=== PATIENT | male | born 1980 | race Caucasian/White ===

== ENCOUNTER 2024-06-22 00:51 | Emergency (ER) | payer OTHER ==
[~2024-06-22] VITALS: Ht 182.9 cm; Wt 88.5 kg
--- NOTE | 2024-06-22 01:11 | ED.PDOC ---
Altered Mental Status HPI Comments 43 year old male came to ER via EMS due o hypoglycemia/ ALOC. Per EMS, patient has history of diabetes type 1 and hypertension. Patients daughter found patient laying unresponsive at the floor. Apparently patient is intoxicated with alcohol with 2-3 empty bottles of vodka beside him. Noted hypoglycemia at 46. Patient was given D10 and it improved to 115. Patient still confused and disoriented at this time. Chief Complaint: Hypoglycemia Time Seen by MD: 01:10 Reviewed Notes: Nurses Notes Allergies: Coded Allergies: Penicillins (Verified Allergy, Unknown, 06/22/24) Information Source: Emergency Med Personnel Mode of Arrival: EMS Severity: Unable to Care for Self, Unresponsive Timing: Hours Duration: Since onset Quality: Decreased Alertness, Change in Behavior, Confusion History of: Diabetes, Hypoglycemia Review of Systems REVIEW OF SYSTEMS: (+) patient altered, intoxicated with alcohol No fever, no chills, or fatigue HEENT: No sore throat, no earache, no congestion, no neck pain. Cardiac: No chest pain. No palpitations. Lungs: No shortness of breath, no cough. GI: No nausea, no vomiting, no diarrhea, no constipation, no abdominal pain : No dysuria, frequency, or urgency. No hematuria. Musculoskeletal: No joint pain , no joint swelling, no extremity edema. Skin: No rash, no itching. Neuro: No headache, no dizziness, no weakness Vital Signs Vital Signs Date Time Temp Pulse Resp B/P (MAP) Pulse Ox O2 Delivery O2 Flow Rate FiO2 06/22/24 01:11 72 06/22/24 00:51 94.9 20 132/100 (111) 97 94.9 Physical Exam General: Patient is lethargic, easily arousable. Skin: Skin in cool, dry and intact. Appropriate color for ethnicity. Nailbeds pink with no cyanosis. HEENT: The head is normocephalic and atraumatic. Conjunctivae are clear without exudates or hemorrhage. Sclera is non-icteric. EOM are intact. No signs of nystagmus. Eyelids are normal in appearance without swelling or lesions. Oral mucosa is pink and moist Neck: The neck is supple with normal range of motion. No JVD. Cardiac: Heart rate and rhythm are normal. No murmurs, gallops, or rubs are auscultated. Respiratory: No signs of respiratory distress. Lung sounds are clear in all lobes bilaterally without rales, ronchi, or wheezes. Abdominal: Abdomen is soft, non-tender without distention. Bowel sounds are present and normoactive in all four quadrants. Extremities: Upper and lower extremities are atraumatic in appearance without deformity or edema. Neurological: The patient is awake, alert and oriented to person, place, slow speech. Speech is clear. There is no facial asymmetry. Moving all extremities spontaneously. Past Medical History PAST MEDICAL HISTORY: DM, HTN Surgical History: Pt Confused Family History Family History: Pt Confused Social History Smoker: Pt Confused Alcohol: Heavy Drugs: Pt Confused Lives In: Home EKG EKG : Pulse Rate (adult): 72 Cardiac Rhythm: NSR Was a procedure done? Was a procedure done?: No Differential Diagnosis (ALOC) Differential Diagnosis: Hypoglycemia, DKA, Encephalopathy, CVA, Drug Overdose, ETOH Intoxication X-Ray, Labs, Meds, VS Vital Signs Date Time Temp Pulse Resp B/P (MAP) Pulse Ox O2 Delivery O2 Flow Rate FiO2 06/22/24 01:11 72 06/22/24 00:54 73 06/22/24 00:51 94.9 77 20 132/100 (111) 97 94.9 Lab Test 06/22/24 03:43 06/22/24 02:37 06/22/24 01:28 Range/Units POC Glucose 129 H 169 H 70-106 mg/dl Ammonia 44 H 11-32 umol/L White Blood Count 5.0 4.4-10.8 10^3/uL Red Blood Count 4.78 4.5-5.90 10^6/uL Hemoglobin 16.4 13.5-17.5 g/dL Hematocrit 45.9 41.0-53.0 % Mean Corpuscular Volume 96.1 80.0-100.0 fL Mean Corpuscular Hemoglobin 34.4 H 28.0-32.0 pg Mean Corpuscular Hemoglobin Concent 35.8 32.0-36.0 g/dL Red Cell Distribution Width 14.5 H 11.8-14.3 % Platelet Count 219 140-450 10^3/uL Mean Platelet Volume 10.0 6.9-10.8 fL Neutrophils (%) (Auto) 50.9 37.0-80.0 % Lymphocytes (%) (Auto) 39.3 10.0-50.0 % Monocytes (%) (Auto) 6.2 0.0-12.0 % Eosinophils (%) (Auto) 1.3 0.0-7.0 % Basophils (%) (Auto) 2.3 H 0.0-2.0 % Neutrophils # (Auto) 2.5 1.6-8.6 10 ^3/uL Lymphocytes # (Auto) 2.0 0.4-5.4 10 ^3/uL Monocytes # (Auto) 0.3 0-1.3 10 ^3/uL Eosinophils # (Auto) 0.1 0-0.8 10 ^3/uL Basophils # (Auto) 0.1 0-0.2 10 ^3/uL Nucleated Red Blood Cells 0.6 % Sodium Level 142 136-145 mmol/L Potassium Level 3.8 3.5-5.1 mmol/L Chloride Level 99 98-107 mmol/L Carbon Dioxide Level 32 H 20-31 mmol/L Anion Gap 11 5-15 Blood Urea Nitrogen 8 L 9-23 mg/dL Creatinine 0.98 0.700-1.30 mg/dL Glomerular Filtration Rate Calc 99 >90 mL/min BUN/Creatinine Ratio 8.2 L 10.0-20.0 Serum Glucose 73 L 74-106 mg/dL Calcium Level 9.9 8.7-10.4 mg/dL Total Bilirubin 0.6 0.2-1.0 mg/dL Aspartate Amino Transferase (AST) 929 H 13-40 U/L Alanine Aminotransferase (ALT) 474 H 7-40 U/L Alkaline Phosphatase 339 H 46-116 U/L Total Protein 7.8 5.7-8.2 g/dL Albumin 4.5 3.2-4.8 g/dL Plasma/Serum Blood Alcohol 414.8 *H <10 mg/dL Current Medications Medications (Trade) Dose Ordered Sig/Felicia Route Start Time Stop Time Status Last Admin Diagnostic Test (Pha) (Accu-Chek Comfort Curve T) 1 strip ONCE ONCE 06/22/24 01:15 06/22/24 01:16 DC 06/22/24 01:22 Dextrose 50 ml PRN ONCE IV 06/22/24 01:15 06/22/24 01:16 DC 06/22/24 01:43 Time of 1ST Reevaluation: 01:03 Reevaluation 1ST: Unchanged Patient Education/Counseling: Diagnosis, Treatment, Prognosis Family Education/Counseling: No Family Present Departure 1 Departure Time of Disposition: 03:39 Impression: Primary Impression: Alcohol intoxication Additional Impressions: Hypoglycemia Hypothermia Elevated liver function tests Disposition: 09 ADMITTED INPATIENT Comments 43-year-old male with history of type 1 diabetes,Dr. Boone Discussed patient's presentation, diagnostic results and recommendation is transfer. [facility] authorization for transfer #[id number] Dr. Boone 04:25am Extensive evaluation was performed in attempt to identify or rule out: (See differential diagnosis section) The following tests were ordered, and results were reviewed by me patient and patient's daughter: (See diagnostic results section) The following test were independently interpreted by me: N/A I reviewed and agreed with the following test results read by other providers: N/A I reviewed the following notes from the pt's past medical encounters: (None available at this time) Additional information was gathered from interviewing the following independent historians: EMS personnel, patient's daughter at bedside Discussion of management or test interpretation with external physician/other qualified health home health aide caregiver: Dr. Boone Addressed an acute or chronic illness that poses a threat to life or bodily function: Dr. Boone Decision regarding hospitalization or escalation of hospital level of care: Risk and benefits of admission for further treatment of patient's condition was considered. Due to patient's current clinical condition, high risk of decline and poor outcome if discharged and need for further inpatient management and monitoring, patient will be admitted to the hospital. Drug therapy requiring intensive monitoring for toxicity: IV dextrose Parenteral controlled substances: N/A Decision regarding elective major surgery with identified patient or procedure risk factors: N/A Decision regarding emergency major surgery: N/A Decision not to resuscitate or to de-escalate care because of poor prognosis: N/A Diagnosis or treatment significantly limited by social determinants of health: N/A Critical Care Note Critical Care Time?: Yes (35 min-critical care time only) Critical care comment: Altered level of consciousness., hypoglycemia Stability Stability form required: No Heart Score Heart Score: Heart Score Response (Comments) Value History N/A 0 EKG N/A 0 Age N/A 0 Risk Factors N/A 0 Troponin N/A 0 Total 0 I personally scribed for BARBARA MARKS MD ([email or web address]) on 06/22/24 at 01:11. Electronically submitted by Honorio Cummins ([email or web address]). BARBARA MARKS MD Jun 22, 2024 01:11
[2024-06-22] MEDS: ACCU-CHEK COMFORT CURVE STRIP VI ONE ×2 (01:22→01:43)
[2024-06-22] MEDS ORDERED: ACCU-CHEK COMFORT CURVE STRIP VI ONE (01:30)
[2024-06-22] MEDS ORDERED: DEXTROSE (50%) 50ML SYRG IV ONE (01:30)
[2024-06-22] MEDS: DEXTROSE (50%) 50ML SYRG IV ONE ×2 (01:43)
[2024-06-22 01:50] VITALS: PULSE 77; RESP 92; O2SAT 94
[2024-06-22 01:52] LABS: Basophils # (auto) 0.1 10 ^3/uL (0-0.2); Eosinophils # (auto) 0.1 10 ^3/uL (0-0.8); Monocytes # (auto) 0.3 10 ^3/uL (0-1.3); Nucleated Red Blood Cells % 0.6 %
[2024-06-22 01:54] LABS: Basophils % (auto) 2.3 % (0.0-2.0); Eosinophils % (auto) 1.3 % (0.0-7.0); Hematocrit 45.9 % (41.0-53.0); Hemoglobin 16.4 g/dL (13.5-17.5); Lymphocytes % (auto) 39.3 % (10.0-50.0); Mean Corpuscular Hemoglobin 34.4 pg (28.0-32.0); Mean Corpuscular Hgb Conc. 35.8 g/dL (32.0-36.0); Mean Corpuscular Volume 96.1 fL (80.0-100.0); Monocytes % (auto) 6.2 % (0.0-12.0); Neutrophils # (auto) 2.5 10 ^3/uL (1.6-8.6); Neutrophils % (auto) 50.9 % (37.0-80.0); Platelet Count (auto) 219 10^3/uL (140-450); Red Blood Cells 4.78 10^6/uL (4.5-5.90); Red Cell Distribution Width 14.5 % (11.8-14.3)
[2024-06-22 03:16] LABS: Alanine Aminotransferase 474 U/L (7-40); Albumin 4.5 g/dL (3.2-4.8); Alkaline Phosphatase 339 U/L (46-116); Anion Gap 11 (5-15); Aspartate Aminotransferase 929 U/L (13-40); BUN/Creatinine Ratio 8.2 (10.0-20.0); Bilirubin, Total 0.6 mg/dL (0.2-1.0); Blood Urea Nitrogen 8 mg/dL (9-23); Calcium 9.9 mg/dL (8.7-10.4); Carbon Dioxide 32 mmol/L (20-31); Chloride 99 mmol/L (98-107); Glucose 73 mg/dL (74-106); Potassium 3.8 mmol/L (3.5-5.1); Sodium 142 mmol/L (136-145); Total Protein 7.8 g/dL (5.7-8.2)
[2024-06-22 03:38] LABS: Blood Alcohol 414.8 mg/dL (<10)
[2024-06-22] MEDS: metroNIDAZOLE 500MG/100ML 100 ML IV ONE (04:30)
[2024-06-22] MEDS: levoFLOXacin 500MG 100 ML IV ONE (04:30)
--- NOTE | 2024-06-22 04:55 | DVH ---
EXAM: CT HEAD WITHOUT CONTRAST INDICATION: Head injury, altered mental status TECHNIQUE: CT of the head without intravenous contrast. Radiation Dose Information: CT Dose: CTDI volume is 65.4 mGy. Dose-length product is 3004.1 mGy*cm The dose indicators for CT are the volume Computed Tomography (CT) Dose Index (CTDIvol) and the Dose Length Product (DLP), and are measured in units of mGy and mGy-cm, respectively. These indicators are not patient dose, but values generated from the CT scanner acquisition factors. The report includes radiation exposure data for exposures received during this examination. COMPARISON: None FINDINGS: There is no evidence of acute intracranial hemorrhage, extra-axial collection, mass effect, midline s hift, herniation or hydrocephalus. The ventricles, sulci and cisterns are age appropriate. The piedra-white differentiation is intact. Patchy periventricular and subcortical white matter hypoattenuation is nonspecific but may be related to small vessel ischemic disease. The visualized paranasal sinuses and mastoid air cells are clear. The surrounding soft tissues and osseous structures are unremarkable. IMPRESSION: 1. No acute intracranial abnormality.
[2024-06-22] MEDS: ONDANSETRON HCL 4 MG/2 ML VIAL ONE (04:57)
[2024-06-22 05:15] LABS: Urine Bacteria None Seen /hpf (None Seen)
[2024-06-22 05:36] LABS: COVID19 ANTIGEN SOFIA FIA NEGATIVE (NEGATIVE); Rapid Influenza A Negative (Negative); Rapid Influenza B Negative (Negative)
[2024-06-22 05:38] LABS: Urine Blood Negative /uL (Negative); Urine Clarity Clear (Clear); Urine Color Yellow (Yellow); Urine Mucus FEW (None Seen); Urine Protein, UAD TRACE (Negative); Urine Specific Gravity 1.008 (1.001-1.035); Urine Squamous Epithelial Cell None Seen /hpf (<5); Urine Urobilinogen Normal (Negative); Urine WBC 1 /HPF (0-3)
[2024-06-22 07:25] VITALS: TEMP 98.5
--- NOTE | 2024-06-22 07:35 | DVH ---
EXAM: CT Abdomen and Pelvis Without Intravenous Contrast CLINICAL INDICATION: HISTORY OF PANCREATITIS TECHNIQUE: Axial computed tomography images of the abdomen and pelvis without intravenous contrast. This CT exam was performed using one or more of the following dose reduction techniques: automated exposure control, adjustment of the mA and/or kV according to patient size, and/or use of iterative r econstruction technique. CONTRAST: RADIATION DOSE: CTDIvol = 7.43 mGy, DLP = 393.93 mGy-cm COMPARISON: FINDINGS: ARTIFACTS: Motion artifact. LUNG BASES: Partially visualized lung emphysema. No consolidation. MEDIASTINUM: Small esophageal hiatal hernia. ABDOMEN: LIVER: Hepatomegaly with fatty infiltration. GALLBLADDER AND BILE DUCTS: Unremarkable. No calcified stones. No ductal dilation. PANCREAS: Atrophic pancreas with punctate calcification, likely from prior inflammation. No signifi cant fat stranding to indicate active pancreatitis. No pseudocyst, abscess or pneumoperitoneum. No d uctal dilation. SPLEEN: Unremarkable. No splenomegaly. ADRENALS: Unremarkable. No mass. KIDNEYS AND URETERS: Unremarkable. No obstructing stones. No hydronephrosis. STOMACH AND BOWEL: Unremarkable. No obstruction. No mucosal thickening. PELVIS: APPENDIX: No findings to suggest acute appendicitis. BLADDER: Markedly distended urinary bladder. Decompression is recommended. No stones. REPRODUCTIVE: Unremarkable as visualized. ABDOMEN and PELVIS: INTRAPERITONEAL SPACE: See above. BONES/JOINTS: No acute fracture. No dislocation. SOFT TISSUES: Unremarkable. VASCULATURE: Unremarkable. No abdominal aortic aneurysm. LYMPH NODES: Unremarkable. No enlarged lymph nodes. OTHER FINDINGS: . . . . IMPRESSION: 1. Atrophic pancreas with punctate calcification, likely from prior inflammation. No significant fat stranding to indicate active pancreatitis. No pseudocyst, abscess or pneumoperitoneum. 2. Small esophageal hiatal hernia. 3. Hepatomegaly with fatty infiltration. 4. Markedly distended urinary bladder. Decompression is recommended.
[2024-06-22] MEDS: fentaNYL CITRATE 100 MCG/2 ML VL IV ONE (07:53)
[2024-06-22 07:55] VITALS: BP 139/99; PULSE 106; RESP 16; O2SAT 96
--- NOTE | 2024-06-22 09:05 | DVH ---
EXAM: US Abdomen Limited, Right Upper Quadrant CLINICAL INDICATION: RUQ ultrasound, elevated LFTs TECHNIQUE: Real-time ultrasound of the right upper quadrant with image documentation. COMPARISON: None FINDINGS: LIVER: Liver measures up to 17.8 cm. Fatty infiltration of the liver. No intrahepatic bile duct d ilation. GALLBLADDER: Negative Valenzuela's sign was reported by the kidney puller. No gallstones. COMMON BILE DUCT: CBD not visualized. PANCREAS: Unremarkable as visualized. RIGHT KIDNEY: Right kidney measures up to 10.1 cm. No stones. No hydronephrosis. OTHER FINDINGS: . IMPRESSION: Fatty infiltration of the liver.
--- NOTE | 2024-06-24 13:54 | ECG ---
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
== END 2024-06-22 08:26 | disposition short-term general hospital (02) ==
LOC: ER 00:51 → EDBD 00:51 → ER 08:26
DX: E10.649 Type 1 diabetes mellitus with hypoglycemia without coma (principal); F10.129 Alcohol abuse with intoxication, unspecified; T68.XXXA Hypothermia, initial encounter; R79.89 Other specified abnormal findings of blood chemistry; K44.9 Diaphragmatic hernia without obstruction or gangrene; I10 Essential (primary) hypertension; F17.200 Nicotine dependence, unspecified, uncomplicated; R51.9 Headache, unspecified; Z79.4 Long term (current) use of insulin; Z87.19 Personal history of other diseases of the digestive system; Z88.0 Allergy status to penicillin; Z20.822 Contact with and (suspected) exposure to COVID-19
CPT/HCPCS: 36415; 70450; 74176; 76705; 80053; 80320; 81001; 82140; 82947; 83690; 85025; 87426; 87804; 93005; 96365; 96366; 96368; 96375; 96376; 99285; J1956; J2405; J3010; J3490; J7042; 82962

== ENCOUNTER 2024-06-27 21:04 | Emergency (ER) | payer OTHER ==
[~2024-06-27] VITALS: Ht 185.4 cm; Wt 102.0 kg
[2024-06-27 21:30] VITALS: BP 134/90; PULSE 86; RESP 13; TEMP 97.6; O2SAT 92
--- NOTE | 2024-06-27 21:34 | ED.PDOC ---
History of Present Illness HPI Comments 43-year-old male came to ER via EMS for alcohol intoxication. Patient recently discharged at [facility], diagnosed with alcohol intoxication and hypoglycemia. Patient does have history of hypertension and type 1 diabetes. Patient was found by family members at home earlier, intoxicated with alcohol and with an electric cord wrung around his neck. Patient denies being suicidal or homicidal. Denies hallucinations. Blood sugar on scene was 151 Chief Complaint: ETOH Time Seen by MD: 21:33 Reviewed Notes: Nurses Notes Allergies: Coded Allergies: Penicillins (Verified Allergy, Unknown, 06/22/24) Information Source: Patient Mode of Arrival: Ambulatory Severity: Moderate Timing: Hours Duration: Since onset Past Medical History PAST MEDICAL HISTORY: DM, HTN Surgical History: Denies all surgeries Family History Family History: Reviewed,noncontributory to illness Social History Smoker: Non-Smoker Alcohol: Heavy Drugs: Denies Drug Use Lives In: Home Constitutional: denies: chills, diaphoresis, fatigue, fever, malaise, sweats, weakness, others EENTM: denies: blurred vision, double vision, ear bleeding, ear discharge, ear drainage, ear pain, ear ringing, eye pain, eye redness, hearing loss, mouth pain, mouth swelling, nasal discharge, nose bleeding, nose congestion, nose pain, photophobia, tearing, throat pain, throat swelling, voice changes, others Respiratory: denies: cough, hemoptysis, orthopnea, SOB at rest, shortness of breath, SOB with excertion, stridor, wheezing, others Cardiovascular: denies: chest pain, dizzy spells, diaphoresis, Dyspnea on exertion, edema, irregular heart beat, left arm pain, lightheadedness, palpitations, PND, syncope, others Gastrointestinal: denies: abdomen distended, abdominal pain, blood streaked bowels, constipated, diarrhea, dysphagia, difficulty swallowing, hematemesis, melena, nausea, poor appetite, poor fluid intake, rectal bleeding, rectal pain, vomiting, others Genitourinary: denies: burning, dysuria, flank pain, frequency, hematuria, incontinence, penile discharge, penile sore, pain, testicle pain, testicle swelling, urgency, others Neurological: denies: dizziness, fainting, headache, left sided numbness, left sided weakness, numbness, paresthesia, pre-existing deficit, right sided numbness, right sided weakness, seizure, speech problems, tingling, tremors, weakness, others Musculoskeletal: denies: back pain, gout, joint pain, joint swelling, muscle pain, muscle stiffness, neck pain, others Integumetry: denies: bruises, change in color, change in hair/nails, dryness, laceration, lesions, lumps, rash, wounds, others Allergic/Immunocompromised: denies: Difficulty Healing, Frequent Infections, Hives, Itching, others Hematologic/Lymphatic: denies: anemia, blood clots, easy bleeding, easy bruising, swollen glands, others Endocrine: denies: excessive hunger, excessive sweating, excessive thirst, excessive urination, flushing, intolerance to cold, intolerance to heat, unexplained weight gain, unexplained weight loss, others Psychiatric: denies: anxiety, bipolar disorder, depression, hopeless, panic disorder, schizophrenia, sleepless, suicidal, others Physical Exam General Appearance: No Apparent Distress, Normal HEENT: Normal ENT Inspection, Pharynx Normal, TMs Normal Neck: Full Range of Motion, Non-Tender, Normal, Normal Inspection Respiratory: Chest Non-Tender, Lungs Clear, No Accessory Muscle Use, No Respiratory Distress, Normal Breath Sounds Cardiovascular: No Edema, No JVD, No Murmur, No Gallop, Normal Peripheral Pulses, Regular Rate/Rhythm Breast Exam: Deferred Gastrointestinal: No Organomegaly, Non Tender, No Pulsatile Mass, Normal Bowel Sounds, Soft Genitalia: Deferred Pelvic: Deferred Rectal: Deferred Extremities: No calf tenderness, Normal capillary refill, Normal inspection, Normal range of motion, Non-tender, No pedal edema Musculoskeletal : Apperance: Normal Neurologic: Alert, slackline operator II-XII nml as Tested, No Motor Deficits, Normal Affect, Normal Mood, No Sensory Deficits Cerebellar Function: Normal Reflexes: Normal Skin: Dry, Normal Color, Warm Lymphatic: No Adenopathy Was a procedure done? Was a procedure done?: No Differential Dx Considerations may include: alcohol intoxication, suicidal gesture, diabetes X-Ray, Labs, Meds, VS Vital Signs Date Time Temp Pulse Resp B/P (MAP) Pulse Ox O2 Delivery O2 Flow Rate FiO2 06/27/24 21:30 97.6 86 13 134/90 (105) 92 97.6 06/27/24 21:30 86 13 92 Room Air* 0 21 06/27/24 21:04 98.0 90 18 129/93 (105) 95 98.0 Lab Test 06/27/24 21:49 06/27/24 21:32 Range/Units White Blood Count 3.9 L 4.4-10.8 10^3/uL Red Blood Count 3.80 L 4.5-5.90 10^6/uL Hemoglobin 12.9 #L 13.5-17.5 g/dL Hematocrit 37.8 #L 41.0-53.0 % Mean Corpuscular Volume 99.4 80.0-100.0 fL Mean Corpuscular Hemoglobin 34.0 H 28.0-32.0 pg Mean Corpuscular Hemoglobin Concent 34.2 32.0-36.0 g/dL Red Cell Distribution Width 15.0 H 11.8-14.3 % Platelet Count 203 140-450 10^3/uL Mean Platelet Volume 8.9 6.9-10.8 fL Neutrophils (%) (Auto) 39.0 37.0-80.0 % Lymphocytes (%) (Auto) 45.3 10.0-50.0 % Monocytes (%) (Auto) 9.2 0.0-12.0 % Eosinophils (%) (Auto) 2.6 0.0-7.0 % Basophils (%) (Auto) 3.9 H 0.0-2.0 % Neutrophils # (Auto) 1.5 L 1.6-8.6 10 ^3/uL Lymphocytes # (Auto) 1.8 0.4-5.4 10 ^3/uL Monocytes # (Auto) 0.4 0-1.3 10 ^3/uL Eosinophils # (Auto) 0.1 0-0.8 10 ^3/uL Basophils # (Auto) 0.2 0-0.2 10 ^3/uL Nucleated Red Blood Cells 0.1 % Sodium Level 145 136-145 mmol/L Potassium Level 4.4 3.5-5.1 mmol/L Chloride Level 108 H 98-107 mmol/L Carbon Dioxide Level 30 20-31 mmol/L Anion Gap 7 5-15 Blood Urea Nitrogen 11 9-23 mg/dL Creatinine 0.97 0.700-1.30 mg/dL Glomerular Filtration Rate Calc 100 >90 mL/min BUN/Creatinine Ratio 11.3 10.0-20.0 Serum Glucose 141 H 74-106 mg/dL Calcium Level 9.2 8.7-10.4 mg/dL Plasma/Serum Blood Alcohol 296.5 H <10 mg/dL POC Glucose 142 H 70-106 mg/dl Time of 1ST Reevaluation: 21:28 Reevaluation 1ST: Unchanged Patient Education/Counseling: Diagnosis, Treatment Family Education/Counseling: No Family Present Departure 1 Departure Time of Disposition: 05:29 (Patient presenting with alcohol intoxication. Patient is out of the labs further workup. Patient eloped from the emergency department) Impression: Primary Impression: Alcohol intoxication Qualified Codes: F10.920 - Alcohol use, unspecified with intoxication, uncomplicated Disposition: 07 LEFT AWOL/ELOPED Condition: Serious Critical Care Note Critical Care Time?: No Stability Stability form required: No Heart Score Heart Score: Heart Score Response (Comments) Value History N/A 0 EKG N/A 0 Age N/A 0 Risk Factors N/A 0 Troponin N/A 0 Total 0 I personally scribed for DEBORAH ALCOCER MD ([email or web address]) on 06/27/24 at 21:34. Electronically submitted by Honorio Cummins ([email or web address]). DEBORAH ALCOCER MD Jun 27, 2024 21:34
[2024-06-27 22:03] LABS: Basophils # (auto) 0.2 10 ^3/uL (0-0.2); Basophils % (auto) 3.9 % (0.0-2.0); Eosinophils # (auto) 0.1 10 ^3/uL (0-0.8); Eosinophils % (auto) 2.6 % (0.0-7.0); Hematocrit 37.8 % (41.0-53.0); Hemoglobin 12.9 g/dL (13.5-17.5); Lymphocytes # (auto) 1.8 10 ^3/uL (0.4-5.4); Lymphocytes % (auto) 45.3 % (10.0-50.0); Mean Corpuscular Hgb Conc. 34.2 g/dL (32.0-36.0); Mean Corpuscular Volume 99.4 fL (80.0-100.0); Monocytes # (auto) 0.4 10 ^3/uL (0-1.3); Monocytes % (auto) 9.2 % (0.0-12.0); Neutrophils # (auto) 1.5 10 ^3/uL (1.6-8.6); Nucleated Red Blood Cells % 0.1 %; Platelet Count (auto) 203 10^3/uL (140-450); White Blood Cell 3.9 10^3/uL (4.4-10.8)
[2024-06-27 22:10] LABS: Potassium 4.4 mmol/L (3.5-5.1)
[2024-06-27 22:11] LABS: Anion Gap 7 (5-15); Calcium 9.2 mg/dL (8.7-10.4); Carbon Dioxide 30 mmol/L (20-31)
[2024-06-27 22:16] LABS: BUN/Creatinine Ratio 11.3 (10.0-20.0); Blood Urea Nitrogen 11 mg/dL (9-23)
[2024-06-27 22:27] LABS: Blood Alcohol 296.5 mg/dL (<10); Chloride 108 mmol/L (98-107); Glucose 141 mg/dL (74-106); Sodium 145 mmol/L (136-145)
== END 2024-06-27 22:43 | disposition left against medical advice (07) ==
LOC: EDBD 21:04 → ER 21:04
DX: F10.129 Alcohol abuse with intoxication, unspecified (principal); E10.649 Type 1 diabetes mellitus with hypoglycemia without coma; I10 Essential (primary) hypertension; Z88.0 Allergy status to penicillin; Z79.4 Long term (current) use of insulin; Z79.899 Other long term (current) drug therapy; Y90.9 Presence of alcohol in blood, level not specified
CPT/HCPCS: 36415; 80048; 80320; 82947; 82962; 85025